=== PATIENT | male | born 1955 | race Caucasian/White ===

== ENCOUNTER → 2016-04-27 | Outpatient (CLI) | payer BC ==
[~2016-04-27] MED LIST: ALL300 PO; FRS/40 PO; GLC500 PO; HYDR-5688 PO; LEVO50TA PO; LISI10TA PO; METO50TA16 PO; OMEP40CA PO; PRED-301 PO
[2016-04-27 13:35] LABS: ALT/SGPT 37 U/L (12-78); AST/SGOT 20 U/L (15-37); BLOOD UREA NITROGEN 17 mg/dl (7-18); BUN/CREATININE RATIO 10.4 (10-20); CALCIUM 8.8 mg/dl (8.5-10.1); CARBON DIOXIDE 30 mmol/L (21-32); CHLORIDE 104 mmol/L (98-107); CHOLESTEROL 150 mg/dl (0-200); GLUCOSE 198 mg/dl (70-99); POTASSIUM 3.8 mmol/L (3.5-5.1); SODIUM 139 mmol/L (136-145)
[2016-04-27 13:37] LABS: ALB/GLOB RATIO 1.2 (0.9-2); ALKALINE PHOSPHATASE 84 U/L (45-117); CHOLESTEROL/HDL RATIO 6.5; HDL CHOLESTEROL 23 mg/dl; TRIGLYCERIDES 587 mg/dl (0-150)
[2016-04-27 13:49] LABS: ESTIMATED AVERAGE GLUCOSE 171 mg/dl; HA1C FLAG Normal (Normal)
== END | disposition home or self-care (01) ==
LOC: C.LABMFLN 08:21
PROVIDERS: ATTEND Internal Medicine Pulmonary Disease
DX: I10 Essential (primary) hypertension (principal); R06.02 Shortness of breath; E11.9 Type 2 diabetes mellitus without complications; N18.2 Chronic kidney disease, stage 2 (mild); E03.9 Hypothyroidism, unspecified; E55.9 Vitamin D deficiency, unspecified

== ENCOUNTER → 2017-07-09 | Outpatient (CLI) | payer BC ==
[2017-07-09 13:01] LABS: BLOOD UREA NITROGEN 34 mg/dl (7-18); CALCIUM 9.3 mg/dl (8.5-10.1); CARBON DIOXIDE 29 mmol/L (21-32); CREATININE 2.24 mg/dl (0.60-1.40); GLUCOSE 147 mg/dl (70-99); HEMOGLOBIN A1C 7.6 % (4.5-5.6); POTASSIUM 4.6 mmol/L (3.5-5.1); SODIUM 140 mmol/L (136-145); URIC ACID 4.3 mg/dl (2.6-7.2)
[2017-07-09 13:12] LABS: ALT/SGPT 39 U/L (12-78); CHOLESTEROL 152 mg/dl (0-200); LDL CHOLESTEROL (DIRECT) 94 mg/dl
== END | disposition home or self-care (01) ==
LOC: C.LABMFLN 10:17
PROVIDERS: ATTEND Family Medicine
DX: E03.9 Hypothyroidism, unspecified (principal); I10 Essential (primary) hypertension; M10.9 Gout, unspecified; E78.1 Pure hyperglyceridemia; E78.5 Hyperlipidemia, unspecified; E11.9 Type 2 diabetes mellitus without complications